=== PATIENT | male | born 1980 | race Caucasian/White ===

== ENCOUNTER 2017-11-06 06:04 | Emergency (ER) | payer BC ==
[2017-11-06] MEDS ORDERED: IPRATROPIUM BROM 0.5MG/2.5ML ONE (06:15)
[2017-11-06] MEDS ORDERED: ALBUTEROL 2.5 MG/3 ML NEB SOL ONE (06:15)
--- NOTE | 2017-11-06 07:49 | ER ---
Nurse's Notes [facility] Name: Alfredo Patricia Age: 37 yrs Sex: Male : 1980 Arrival Date: 11/06/2017 Time: 06:08 Bed 6 Private MD: Nciho Sewell E Diagnosis: Pneumonia, unspecified organism Presentation: 11/06 06:13 Presenting complaint: Patient states: Difficulty breathing with congestions and body ao achenes that started few weeks ago. Patient had seek medical treatment and was prescribed with steroid shots but are not helping. Patient has also tried Mucinex and other OTC medications. Transition of care: patient was not received from another setting of care. Onset of symptoms is unknown. Initial Sepsis Screen: Does the patient meet any 2 criteria? No. Patient's initial sepsis screen is negative. Does the patient have a suspected source of infection? No. Patient's initial sepsis screen is negative. Care prior to arrival: None. 06:13 Method Of Arrival: Ambulatory ao 06:13 Acuity: JAGDEEP 3 ao Triage Assessment: 06:19 General: Appears in no apparent distress. uncomfortable, Behavior is calm, cooperative, ao appropriate for age. Pain: Complains of pain in chest. Respiratory: Reports shortness of breath at rest on exertion Onset: The symptoms/episode began/occurred few weeks ago, the patient has moderate shortness of breath. Historical: - Allergies: 06:18 No Known Allergies; ao - Home Meds: 06:18 Steroids shots [Active]; Mucinex oral oral [Active]; ao - PMHx: 06:18 None; ao - PSHx: 06:18 None; ao - Immunization history:: Adult Immunizations up to date. - Social history:: Smoking status: Patient uses tobacco products, smokes one-half pack cigarettes per day, Patient/guardian denies using alcohol, street drugs. Screenin:22 Abuse screen: Denies threats or abuse. Denies injuries from another. Nutritional ao screening: No deficits noted. Tuberculosis screening: No symptoms or risk factors identified. Fall Risk None identified. Assessment: 06:20 General: Appears in no apparent distress. comfortable. Pain: Complains of pain in chest ao from congestion. Neuro: Level of Consciousness is awake, alert, obeys commands, Oriented to person, place, time, situation, Appropriate for age Moves all extremities. Speech is normal, Facial symmetry appears normal. Cardiovascular: Capillary refill < 3 seconds Patient's skin is warm and dry. Rhythm is regular. Respiratory: Airway is patent Respiratory effort is even, unlabored, Breath sounds with wheezes bilaterally. GI: Abdomen is round. : No signs and/or symptoms were reported regarding the genitourinary system. EENT: No signs and/or symptoms were reported regarding the EENT system. Derm: Skin is intact, Skin is pink, warm \T\ dry. Skin temperature is warm. Musculoskeletal: No signs and/or symptoms reported regarding the musculoskeletal system. Range of motion: intact in all extremities. 07:03 Reassessment: report given to Bill Alves RN and Carissa Velez RN. ak1 08:00 Reassessment: Patient appears in no apparent distress at this time. Patient and/or sv family updated on plan of care and expected duration. Pain level reassessed. Patient is alert, oriented x 3, equal unlabored respirations, skin warm/dry/pink. Vital Signs: 06:19 BP 137 / 66; Pulse 95; Resp 16; Temp 98.3(O); Pulse Ox 95% on R/A; Weight 140.61 kg ao (R); Height 6 ft. 0 in. (182.88 cm) (R); Pain 6/10; 06:19 Body Mass Index 42.04 (140.61 kg, 182.88 cm) ao ED Course: 06:08 Patient arrived in ED. es 06:10 Nicho Sewell MD is Private Physician. es 06:14 [facility] kb 06:14 Kenneth Jones MD is Attending Physician. kb 06:17 Triage completed. ao 06:17 Arm band placed on right wrist. Patient placed in an exam room, Patient notified of ao wait time. 06:22 Radiology exam delayed due to patient receiving breathing treatment at this time. kw 06:23 Michael Zhu, RN is Primary Nurse. ao 06:23 Patient has correct armband on for positive identification. Pulse ox on. NIBP on. ao 06:48 Radiology exam delayed due to patient receiving breathing treatment at this time. jb2 06:50 Patient moved to radiology via wheelchair. jb2 07:01 X-ray completed. Patient tolerated procedure well. jb2 07:04 Patient moved back from radiology. jb2 07:04 Chest Pa And Lat (2 Views) XRAY In Process Unspecified. EDMS 07:04 Bill Epstein, RN is Primary Nurse. sg 08:00 No provider procedures requiring assistance completed. Patient did not have IV access sv during this emergency room visit. Administered Medications: 06:17 Drug: DuoNeb (3:1) (2.5 mg - 0.5 mg) 3 ml Route: Nebulizer; ak1 08:00 Drug: Zithromax 500 mg Route: PO; sv 08:00 Follow up: Response: No adverse reaction sv 08:00 Drug: predniSONE 60 mg Route: PO; sv 08:00 Follow up: Response: Medication administered at discharge. sv Outcome: 07:49 Discharge ordered by . jeni 08:00 Discharged to home ambulatory. sv 08:00 Condition: stable 08:00 Discharge instructions given to patient, Instructed on discharge instructions, follow up and referral plans. medication usage, Demonstrated understanding of instructions, follow-up care, medications, Prescriptions given X 3. 08:00 Patient left the ED. sv Signatures: Dispatcher [employer] EDAR Glo Charles, ITEM REPAIR MANAGER-C ITEM REPAIR MANAGER-Carissa Alarcon RN RN sv Bill Epstein, RN RN Summer García Jesse jb2 Prerna Betts Amber RN RN ak1 Michael Zhu, RN RN ao Corrections: (The following items were deleted from the chart) 08:13 08:13 Patient left the ED. sv sv
--- NOTE | 2017-11-06 07:50 | EDPHYS ---
Physician Documentation [facility] Name: Alfredo Patricia Age: 37 yrs Sex: Male : 1980 Arrival Date: 11/06/2017 Time: 06:08 Bed 6 Private MD: Nicho Sewell E ED Physician Kenneth Jones HPI: 11/06 06:19 This 37 yrs old Male presents to ER via Ambulatory with complaints of kb Breathing Difficulty, Congestion, Body shakeing. 06:19 The patient or guardian reports cough, that is intermittent, described as mild, with no kb sputum, difficulty breathing, flu symptoms, myalgias. Onset: The symptoms/episode began/occurred 2 week(s) ago. Severity of symptoms: At their worst the symptoms were moderate, in the emergency department the symptoms are unchanged. Modifying factors: The symptoms are alleviated by nothing, the symptoms are aggravated by nothing. Associated signs and symptoms: Pertinent positives: rhinorrhea, Pertinent negatives: chest pain, diarrhea, ear ache, fever, nausea, sore throat, vomiting. The patient has not experienced similar symptoms in the past. The patient has been recently seen by a physician: the ER physician, in [place], 5 day(s) ago, with similar presenting complaints, and apparently given a diagnosis of bronchitis, given steroid shot that worked for a few days. Pt states he has had cough, congestion, body aches and malaise for 2 weeks. Was seen at [place] over the weekend and given a shot of steroids that worked for a few days, but now he feels the same as he did before. Reports shortness of breath as well. Historical: - Allergies: 06:18 No Known Allergies; ao - Home Meds: 06:18 Steroids shots [Active]; Mucinex oral oral [Active]; ao - PMHx: 06:18 None; ao - PSHx: 06:18 None; ao - Immunization history:: Adult Immunizations up to date. - Social history:: Smoking status: Patient uses tobacco products, smokes one-half pack cigarettes per day, Patient/guardian denies using alcohol, street drugs. ROS: 06:18 Cardiovascular: Negative for chest pain, palpitations, and edema, Abdomen/GI: Negative kb for abdominal pain, nausea, vomiting, diarrhea, and constipation, Back: Negative for injury and pain, MS/Extremity: Negative for injury and deformity, Skin: Negative for injury, rash, and discoloration, Neuro: Negative for headache, weakness, numbness, tingling, and seizure. 06:18 Constitutional: Positive for body aches, chills, malaise, Negative for fatigue, fever, poor PO intake, weight loss. 06:18 ENT: Positive for rhinorrhea, sinus congestion, sinus pain. 06:18 Respiratory: Positive for cough, shortness of breath, Negative for dyspnea on exertion, hemoptysis, orthopnea, pleurisy, sputum production, wheezing. Exam: 06:18 Constitutional: This is a well developed, well nourished patient who is awake, alert, kb and in no acute distress. Head/Face: Normocephalic, atraumatic. ENT: Nares patent. No nasal discharge, no septal abnormalities noted. Tympanic membranes are normal and external auditory canals are clear. Oropharynx with no redness, swelling, or masses, exudates, or evidence of obstruction, uvula midline. Mucous membranes moist. Neck: Trachea midline, no thyromegaly or masses palpated, and no cervical lymphadenopathy. Supple, full range of motion without nuchal rigidity, or vertebral point tenderness. No Meningismus. Chest/axilla: Normal chest wall appearance and motion. Nontender with no deformity. No lesions are appreciated. Cardiovascular: Regular rate and rhythm with a normal S1 and S2. No gallops, murmurs, or rubs. Normal PMI, no JVD. No pulse deficits. Abdomen/GI: Soft, non-tender, with normal bowel sounds. No distension or tympany. No guarding or rebound. No evidence of tenderness throughout. Back: No spinal tenderness. No costovertebral tenderness. Full range of motion. Skin: Warm, dry with normal turgor. Normal color with no rashes, no lesions, and no evidence of cellulitis. MS/ Extremity: Pulses equal, no cyanosis. Neurovascular intact. Full, normal range of motion. Neuro: Awake and alert, GCS 15, oriented to person, place, time, and situation. Cranial nerves II-XII grossly intact. Motor strength 5/5 in all extremities. Sensory grossly intact. Cerebellar exam normal. Normal gait. 06:18 Respiratory: the patient does not display signs of respiratory distress, Respirations: normal, Breath sounds: wheezing: expiratory that is mild, is heard in the left posterior lower lobe. Vital Signs: 06:19 BP 137 / 66; Pulse 95; Resp 16; Temp 98.3(O); Pulse Ox 95% on R/A; Weight 140.61 kg ao (R); Height 6 ft. 0 in. (182.88 cm) (R); Pain 6/10; 06:19 Body Mass Index 42.04 (140.61 kg, 182.88 cm) ao MDM: 06:14 Patient medically screened. kb 06:18 Data reviewed: vital signs, nurses notes. Data interpreted: Pulse oximetry: on room air kb is 100 %. Interpretation: normal. 07:48 Counseling: I had a detailed discussion with the patient and/or guardian regarding: the kb historical points, exam findings, and any diagnostic results supporting the discharge/admit diagnosis, radiology results, the need for outpatient follow up, a family practitioner, to return to the emergency department if symptoms worsen or persist or if there are any questions or concerns that arise at home. 11/06 06:14 Order name: Chest Pa And Lat (2 Views) XRAY kb Administered Medications: 06:17 Drug: DuoNeb (3:1) (2.5 mg - 0.5 mg) 3 ml Route: Nebulizer; ak1 08:00 Drug: Zithromax 500 mg Route: PO; sv 08:00 Follow up: Response: No adverse reaction sv 08:00 Drug: predniSONE 60 mg Route: PO; sv 08:00 Follow up: Response: Medication administered at discharge. sv Disposition: 14:01 Co-signature as Attending Physician, Kenneth Jones MD I agree with the assessment and kala plan of care. Disposition: 11/06/17 07:49 Discharged to Home. Impression: Pneumonia, unspecified organism. - Condition is Stable. - Discharge Instructions: Pneumonia, Adult, [id number]. - Prescriptions for Prednisone 20 mg Oral Tablet - take 1 tablet by ORAL route once daily for 5 days; 5 tablet. Albuterol Sulfate 90 mcg/actuation - inhale 1-2 puff by INHALATION route every 4-6 hours; 1 Inhaler. Zithromax 500 mg Oral Tablet - take 1 tablet by ORAL route once daily for 5 days; 5 tablet. - Medication Reconciliation Form, Thank You Letter, Antibiotic Education, Prescription Opioid Use form. - Follow up: Emergency Department; When: As needed; Reason: Worsening of condition. Follow up: Private Physician; When: 2 - 3 days; Reason: Recheck today's complaints, Continuance of care, Re-evaluation by your physician. Signatures: Dispatcher [employer] Glo Brian, DIANA EL-Carissa Alarcon RN RN Kenneth Wray MD MD cha Krenek, Amber, RN RN akMichael Vicente RN ANA ao Corrections: (The following items were deleted from the chart) 07:48 06:18 Constitutional: Positive for body aches, malaise, Negative for chills, fatigue, kb fever, poor PO intake, weight loss, kb
[2017-11-06] MEDS ORDERED: predniSONE 20 MG TAB ONE (07:56)
[2017-11-06] MEDS ORDERED: AZITHROMYCIN 250 MG TAB ONE (07:56)
--- NOTE | 2017-11-06 09:00 | RAD REPORT ---
EXAM DESCRIPTION: RAD - Chest Pa And Lat (2 Views) - 11/06/2017 7:06 am CLINICAL HISTORY: Cough and congestion COMPARISON: None. FINDINGS: The lungs are clear. The heart is normal in size. No displaced fractures. IMPRESSION: No acute or concerning finding suspected.
== END 2017-11-06 08:13 | disposition home or self-care (01) ==
LOC: ER 06:04
DX: J18.9 Pneumonia, unspecified organism (principal); F17.210 Nicotine dependence, cigarettes, uncomplicated
CPT/HCPCS: 71046; 94640; 99284; J7512

== ENCOUNTER 2018-01-16 20:29 | Emergency (ER) | payer BC ==
--- NOTE | 2018-01-16 22:07 | RAD REPORT ---
EXAM DESCRIPTION: RAD - Foot Right 3 View - 01/16/2018 9:09 pm CLINICAL HISTORY: Foot pain and swelling COMPARISON: None. FINDINGS: No fracture, dislocation or periosteal reaction. No acute bone or joint process identified . No air or foreign body in the soft tissues. IMPRESSION: Negative right foot examination.
--- NOTE | 2018-01-16 23:23 | ER ---
Nurse's Notes [facility] Name: Alfredo Patricia Age: 37 yrs Sex: Male : 1980 Arrival Date: 01/16/2018 Time: 20:32 Bed 11 Private MD: Diagnosis: Pain in right foot;Dependent edema Presentation: 01/16 20:36 Presenting complaint: Patient states: Right foot pain and swelling since Friday. aj Transition of care: patient was not received from another setting of care. Onset of symptoms was January 13, 2018. Risk Assessment: Do you want to hurt yourself or someone else? Patient reports no desire to harm self or others. Initial Sepsis Screen: Does the patient meet any 2 criteria? No. Patient's initial sepsis screen is negative. Does the patient have a suspected source of infection? No. Patient's initial sepsis screen is negative. Care prior to arrival: None. 20:36 Method Of Arrival: Ambulatory aj 20:36 Acuity: JAGDEEP 4 aj Triage Assessment: 20:38 General: Appears in no apparent distress. comfortable, Behavior is calm, cooperative, aj appropriate for age. Pain: Complains of pain in right foot. Neuro: Level of Consciousness is awake, alert, obeys commands, Oriented to person, place, time, situation, Appropriate for age. Respiratory: Airway is patent Respiratory effort is even, unlabored, Respiratory pattern is regular, symmetrical. Derm: Skin is intact, is healthy with good turgor, Skin is pink, warm \T\ dry. normal. Musculoskeletal: Swelling present in right foot Reports pain in right foot. Historical: - Allergies: 20:38 No Known Allergies; aj - Home Meds: 20:38 None [Active]; aj - PMHx: 20:38 None; aj - PSHx: 20:38 None; aj - Immunization history:: Adult Immunizations up to date. - Social history:: Smoking status: Patient uses tobacco products, smokes one-half pack cigarettes per day. - Ebola Screening: : Patient negative for fever greater than or equal to 101.5 degrees Fahrenheit, and additional compatible Ebola Virus Disease symptoms Patient denies exposure to infectious person Patient denies travel to an Ebola-affected area in the 21 days before illness onset No symptoms or risks identified at this time. Screenin:50 Abuse screen: Denies threats or abuse. Denies injuries from another. Nutritional aa1 screening: No deficits noted. Tuberculosis screening: No symptoms or risk factors identified. Fall Risk None identified. Assessment: 20:50 General: Appears in no apparent distress. comfortable, Behavior is calm, cooperative, aa1 appropriate for age. Pain: Complains of pain in right foot Pain began 2-3 days ago. Aggravated by weight bearing. Neuro: Level of Consciousness is awake, alert, obeys commands. Respiratory: Airway is patent Respiratory effort is even, unlabored, Respiratory pattern is regular, symmetrical. GI: No signs and/or symptoms were reported involving the gastrointestinal system. : No signs and/or symptoms were reported regarding the genitourinary system. EENT: No signs and/or symptoms were reported regarding the EENT system. Derm: Skin is intact, is healthy with good turgor, Skin is pink, warm \T\ dry. Musculoskeletal: Circulation, motion, and sensation intact. Capillary refill < 3 seconds, Range of motion: intact in all extremities, Swelling present in right foot. 21:54 Reassessment: Patient appears in no apparent distress at this time. Patient and/or aa1 family updated on plan of care and expected duration. Pain level reassessed. Patient is alert, oriented x 3, equal unlabored respirations, skin warm/dry/pink. Awaiting U/S. 22:41 Reassessment: Patient appears in no apparent distress at this time. Patient and/or aa1 family updated on plan of care and expected duration. Pain level reassessed. Patient is alert, oriented x 3, equal unlabored respirations, skin warm/dry/pink. U/S at bedside for DVT study. 23:39 Reassessment: Patient appears in no apparent distress at this time. Patient is alert, aa1 oriented x 3, equal unlabored respirations, skin warm/dry/pink. Discussed d/c \T\ f/u instructions with pt; denies questions or concerns at this time. Vital Signs: 20:38 BP 145 / 79; Pulse 91; Resp 20; Temp 98.4; Pulse Ox 98% on R/A; Weight 158.76 kg; aj Height 6 ft. 0 in. (182.88 cm); 21:53 BP 142 / 79; Pulse 82; Resp 18; Pulse Ox 98% on R/A; aa1 22:59 BP 138 / 82; Pulse 72; Resp 18; Pulse Ox 99% on R/A; aa1 20:38 Body Mass Index 47.47 (158.76 kg, 182.88 cm) ED Course: 20:32 Patient arrived in ED. al2 20:37 Triage completed. aj 20:38 Arm band placed on left wrist. Patient placed in waiting room, Patient notified of wait aj time. 20:41 Gabbie Marie, RN is Primary Nurse. aa1 20:49 Antwon Desir NP is PHCP. pm1 20:49 Patrick Olivares MD is Attending Physician. pm1 20:50 Patient has correct armband on for positive identification. Bed in low position. Call aa1 light in reach. Pulse ox on. NIBP on. 21:08 Foot Right 3 View XRAY In Process Unspecified. EDMS 21:08 X-ray completed. Portable x-ray completed in exam room. Patient tolerated procedure kp1 well. 22:41 Ultrasound completed. Patient tolerated well. sg3 22:57 Extremity Venous Uni Ltd US In Process Unspecified. EDMS 23:39 No provider procedures requiring assistance completed. Patient did not have IV access aa1 during this emergency room visit. Administered Medications: No medications were administered Outcome: 23:22 Discharge ordered by MD. pm1 23:39 Discharged to home ambulatory. aa1 23:39 Condition: good 23:39 Discharge instructions given to patient, Instructed on discharge instructions, follow up and referral plans. Demonstrated understanding of instructions, follow-up care. 23:40 Patient left the ED. aa1 Signatures: Dispatcher [employer] EDMS Gabbie Marie, ANA PEREZ aa1 Karolina Marcial RN RN Antwon Desir NP FIELD TECHNICAL ASSISTANT pm1 Lindy Lopez kp1 Comfort Maldonado sg3 Jessica Chavez al2
--- NOTE | 2018-01-16 23:23 | EDPHYS ---
Physician Documentation [facility] Name: Alfredo Patricia Age: 37 yrs Sex: Male : 1980 Arrival Date: 01/16/2018 Time: 20:32 Bed 11 Private MD: ED Physician Patrick Olivares HPI: 01/16 21:00 This 37 yrs old Male presents to ER via Ambulatory with complaints of Right pm1 Foot Pain and swelling. 21:00 The patient presents with pain, swelling. The complaints affect the right foot and pm1 right calf. Context: The problem was sustained at work, resulted from sitting for long periods at work, the patient can fully bear weight, the patient is able to ambulate, Problem is a result from a previous injury: No. Onset: The symptoms/episode began/occurred 1 week(s) ago. Modifying factors: The symptoms are alleviated by elevating leg, at night. Resolved in the AM. the symptoms are aggravated by dependent legs. Associated signs and symptoms: Pertinent negatives chest pain or shortness of breath. Treatment prior to arrival includes: no previous treatment. Severity of symptoms: in the emergency department the symptoms have improved. The patient has not experienced similar symptoms in the past. Historical: - Allergies: 20:38 No Known Allergies; aj - Home Meds: 20:38 None [Active]; aj - PMHx: 20:38 None; aj - PSHx: 20:38 None; aj - Immunization history:: Adult Immunizations up to date. - Social history:: Smoking status: Patient uses tobacco products, smokes one-half pack cigarettes per day. - Ebola Screening: : Patient negative for fever greater than or equal to 101.5 degrees Fahrenheit, and additional compatible Ebola Virus Disease symptoms Patient denies exposure to infectious person Patient denies travel to an Ebola-affected area in the 21 days before illness onset No symptoms or risks identified at this time. ROS: 21:00 Constitutional: Negative for fever, chills, and weight loss, Eyes: Negative for injury, pm1 pain, redness, and discharge, ENT: Negative for injury, pain, and discharge, Neck: Negative for injury, pain, and swelling, Cardiovascular: Negative for chest pain, palpitations, and edema, Respiratory: Negative for shortness of breath, cough, wheezing, and pleuritic chest pain, Abdomen/GI: Negative for abdominal pain, nausea, vomiting, diarrhea, and constipation, Back: Negative for injury and pain, MS/Extremity: Negative for injury and deformity, Skin: Negative for injury, rash, and discoloration, Neuro: Negative for headache, weakness, numbness, tingling, and seizure. Exam: 21:00 Constitutional: This is a well developed, well nourished patient who is awake, alert, pm1 and in no acute distress. Head/Face: Normocephalic, atraumatic. Eyes: Pupils equal round and reactive to light, extra-ocular motions intact. Lids and lashes normal. Conjunctiva and sclera are non-icteric and not injected. Cornea within normal limits. Periorbital areas with no swelling, redness, or edema. ENT: Nares patent. No nasal discharge, no septal abnormalities noted. Tympanic membranes are normal and external auditory canals are clear. Oropharynx with no redness, swelling, or masses, exudates, or evidence of obstruction, uvula midline. Mucous membranes moist. Neck: Trachea midline, no thyromegaly or masses palpated, and no cervical lymphadenopathy. Supple, full range of motion without nuchal rigidity, or vertebral point tenderness. No Meningismus. Chest/axilla: Normal chest wall appearance and motion. Nontender with no deformity. No lesions are appreciated. Cardiovascular: Regular rate and rhythm with a normal S1 and S2. No gallops, murmurs, or rubs. Normal PMI, no JVD. No pulse deficits. Respiratory: Lungs have equal breath sounds bilaterally, clear to auscultation and percussion. No rales, rhonchi or wheezes noted. No increased work of breathing, no retractions or nasal flaring. Abdomen/GI: Soft, non-tender, with normal bowel sounds. No distension or tympany. No guarding or rebound. No evidence of tenderness throughout. Back: No spinal tenderness. No costovertebral tenderness. Full range of motion. Skin: Warm, dry with normal turgor. Normal color with no rashes, no lesions, and no evidence of cellulitis. 21:00 Musculoskeletal/extremity: Extremities: grossly normal except: Tenderness to right lower calf and dorsal aspect of right foot. Trace swelling present to dorsum of right foot. Vital Signs: 20:38 BP 145 / 79; Pulse 91; Resp 20; Temp 98.4; Pulse Ox 98% on R/A; Weight 158.76 kg; aj Height 6 ft. 0 in. (182.88 cm); 21:53 BP 142 / 79; Pulse 82; Resp 18; Pulse Ox 98% on R/A; aa1 22:59 BP 138 / 82; Pulse 72; Resp 18; Pulse Ox 99% on R/A; aa1 20:38 Body Mass Index 47.47 (158.76 kg, 182.88 cm) aj MDM: 20:49 Patient medically screened. pm1 23:21 Data reviewed: vital signs. Data interpreted: Pulse oximetry: on room air is 99 %. pm1 Interpretation: normal. Counseling: I had a detailed discussion with the patient and/or guardian regarding: the historical points, exam findings, and any diagnostic results supporting the discharge/admit diagnosis, radiology results, the need for outpatient follow up, to return to the emergency department if symptoms worsen or persist or if there are any questions or concerns that arise at home. 01/16 20:55 Order name: Ext[facility] [employer] pm1 01/16 20:55 Order name: Foot Right 3 View XRAY; Complete Time: 22:34 pm1 Administered Medications: No medications were administered Disposition: 23:46 Co-signature as Attending Physician, Patrick Olivares MD I agree with the assessment and kdr plan of care. Disposition: 01/16/18 23:22 Discharged to Home. Impression: Pain in right foot, Dependent edema. - Condition is Stable. - Discharge Instructions: Edema. - Medication Reconciliation Form, Thank You Letter form. - Follow up: Emergency Department; When: As needed; Reason: Worsening of condition. Follow up: Private Physician; When: 2 - 3 days; Reason: Recheck today's complaints, Continuance of care, Re-evaluation by your physician. - Problem is new. - Symptoms have improved. Signatures: Dispatcher [employer] EDMS Gabbie Marie RN RN aa1 Karolina Marcial RN RN aj Rittger, Kevin, MD MD kdr Marinas, Patrick, NP [employer] pm1 Corrections: (The following items were deleted from the chart) 23:40 23:22 01/16/2018 23:22 Discharged to Home. Impression: Pain in right foot; Dependent aa1 edema. Condition is Stable. Forms are Medication Reconciliation Form, Thank You Letter, Antibiotic Education, Prescription Opioid Use. Follow up: Emergency Department; When: As needed; Reason: Worsening of condition. Follow up: Private Physician; When: 2 - 3 days; Reason: Recheck today's complaints, Continuance of care, Re-evaluation by your physician. Problem is new. Symptoms have improved. pm1
--- NOTE | 2018-01-17 08:25 | RAD REPORT ---
EXAM DESCRIPTION: [facility] [employer]01/16/2018 10:56 pm CLINICAL HISTORY: Right leg pain and swelling. COMPARISON: None. FINDINGS: Right common femoral, superficial femoral, popliteal and right posterior tibial veins are compressible and demonstrate augmentation. Doppler demonstrates good flow. IMPRESSION: No evidence of deep venous thrombosis involving the right lower extremity.
== END 2018-01-16 23:40 | disposition home or self-care (01) ==
LOC: ER 20:29
DX: M79.671 Pain in right foot (principal); R60.9 Edema, unspecified; F17.210 Nicotine dependence, cigarettes, uncomplicated
CPT/HCPCS: 93971; 99283